=== PATIENT | female | born 1960 | race African-American/Black ===

== ENCOUNTER 2021-02-17 09:48 | Inpatient (IN) | payer OTHER ==
[2021-02-17] VITALS (7 sets, daily range): BP systolic 91–152; BP diastolic 60–91
[~2021-02-17] VITALS: Ht 160 cm; Wt 74.5 kg
--- NOTE | ~2021-02-17 | HC ---
[facility] [place] [address] CONSULTATION Name: MIMI DASH Room #: 206-P ADM IN M.R.#: [id number] Admission: 02/17/21 Attend Phys: Sherie Herrera MD Discharge: Date of : 64 Report #: [id number] THIS REPORT FOR: cc: Dot Boo APRN, Stephanie APRN Khosla,Navneet Leigh MD ~ DOC #: [id number] Navneet Garland MD DATE OF SERVICE: 02/17/2021 HISTORY OF PRESENT ILLNESS: A 60-year-old female patient who was evaluated by me for any neurological etiology for the patient's dizziness. Initially, Emergency Room physician has called me and I talked to him. Subsequently, I talked to Dr. Herrera. They have told him that the patient has multi-level problems in the vessels, so I have asked them to call Radiology to make sure we do a catheter angiogram, if necessary after evaluation before admitting him. They did that, but they misinterpreted as ordering the catheter angiogram. In any event, Dr. Stein called me and he reviewed the CT angiogram and he said the finding is not impressive and is not typical for vasculitis and no catheter angiogram is necessary. The patient's symptoms are that she is dizzy. She said she is dizzy for 2 days, but then she said some symptoms are going on for 1 week. She has not had these symptoms before. She says it comes in episodes and sometimes it is worse, sometimes it is better. She does not have any prominent headache. REVIEW OF SYSTEMS: Somewhat complicated in this patient. There is some question of aneurysm, but no aneurysm has been demonstrated on CT angiogram. CT angiogram has some disease and Dr. Stein, who is our neuroradiologist and interventional radiologist, he does not think it is prominent anything, it is atherosclerotic disease rather than vasculitis. She did have the COVID vaccine. She is not complaining of much visual, ENT, cardiac, respiratory, GI, , musculoskeletal, constitutional dermatological, hematological, psychiatric, throat, allergic symptom associated with present symptomatology. PAST MEDICAL HISTORY: Negative for these kind of symptoms. FAMILY HISTORY: Unremarkable. SOCIAL HISTORY: Positive for smoking. PHYSICAL EXAMINATION: NEUROLOGIC: She is alert, responsive, able to follow simple and complex commands. Her speech looks intact. Cranial nerve examination is unremarkable. Neuromuscular examination is unremarkable. No ataxia was noted. There is no [facility] [address] [place] [place] [address] CONSULTATION Name: MIMI DASH Room #: 206-P [facility] IN .R.#: [id number] Admission: 02/17/21 Attend Phys: Sherie Herrera MD Discharge: Date of : 64 Report #: [id number] meningeal sign. CARDIORESPIRATORY: Unremarkable. VITAL SIGNS: Her blood pressure does go low one time to 91/60. IMPRESSION: We need to do the MRI to decide if this is ENT in pathology or something neurological is going on. So far, the workup is unremarkable. I do not know what to make of her prior history of aneurysm because 2 radiologists have reviewed it and neither one of them think about any aneurysm. She already got aspirin in the Emergency Room. Her cholesterol is high that needs to be addressed. Her blood pressure also may have to be addressed because it has been low but at least one time. I will continue her on aspirin and statin and we will await rest of the blood workup. She will need some other blood workup as an outpatient depending upon the MRI results. It might be mentioned her sed rate is normal. I discussed all of it with this patient and the family. They would like to have discs on the discharge, which will provide them to get a second opinion and preferably from the place where the aneurysm was diagnosed. Thank you very much for this referral. Navneet Garland MD PK/EKT By: [id number] 0032 Navneet Garland MD /nt
[2021-02-17 10:31] LABS: ABSOLUTE NEUTROPHILS 4.4 thou/uL (1.4-8.2); BASOPHILS 0.7 % (0.0-2.0); EOSINOPHILS 0.7 % (0.0-3.0); HEMATOCRIT 36.7 % (37.0-47.0); HEMOGLOBIN 12.4 gm/dL (12.0-15.0); LYMPHOCYTES 27.2 % (24.0-44.0); MCH 32.9 pg (26.0-34.0); MCHC 33.7 g/dL (28.0-37.0); MCV 97.5 fL (80.0-100.0); MONOCYTES 7.2 % (1.0-8.0); PLATELET COUNT 258 thou/uL (150-400); POLYS 64.2 % (36.0-66.0); RBC 3.77 mil/uL (4.20-5.00); RDW 13.5 % (10.5-14.5); WBC 6.9 thou/uL (4.0-11.0)
[2021-02-17 10:34] LABS: ANION GAP 8 mmol/L (7-16); BUN 16 mg/dL (7-18); CALCIUM 9.1 mg/dL (8.5-10.1); CHLORIDE 109 mmol/L (98-107); CO2 28 mmol/L (21-32); GLUCOSE 86 mg/dL (74-106); POTASSIUM 3.2 mmol/L (3.5-5.1); SODIUM 145 mmol/L (136-145)
[2021-02-17 10:44] LABS: ALBUMIN 3.6 g/dL (3.4-5.0); SGOT 17 U/L (15-37); SGPT 17 U/L (14-59); TOTAL BILIRUBIN 0.2 mg/dL (0.2-1.0); TOTAL PROTEIN 7.3 g/dL (6.4-8.2); TROPONIN-I <0.06 ng/mL (<0.06)
[2021-02-17 10:47] LABS: APTT 25.6 Seconds (24.5-32.8); INR 0.94; PROTIME 10.3 Seconds (10.5-12.1)
[2021-02-17] MEDS ORDERED: NORVASC10 MG PO (11:39)
[2021-02-17 14:00] LABS: CHOLESTEROL 202 mg/dL (<200); HDL CHOLESTEROL 76 mg/dL (>40); LDL CHOLESTEROL 113 mg/dL (<100); TC:HDL 2.7 Ratio (Not establshd); TRIGLYCERIDE 68 mg/dL (<150); VLDL 14 mg/dL (<40)
[2021-02-17 14:01] LABS: SERUM ASSESSMENT Clear
--- NOTE | 2021-02-17 14:34 | EKG ---
[address] [place] [address] ELECTROCARDIOGRAM REPORT Name: MIMI DASH Room #: 170-9 ADM IN M.R.#: [id number] Admission: 02/17/21 Attend Phys: Sherie Herrera MD Discharge: Date of : 64 Report #: [id number] [facility] ED Test Date: 2021-02-17 Test Time: 10:27:00 Pat Name: MIMI DASH Department: Room: 170 Gender: F [employer]: RK : 1960 Requested By: Juan Miranda Order Number: [id number] MD: Hamilton Murray Measurements Intervals [place] Rate: 61 P: -13 TX: 184 QRS: -1 QRSD: 101 T: -2 QT: 421 QTc: 424 Interpretive Statements Sinus rhythm Left ventricular hypertrophy Borderline T abnormalities, inferior leads No previous ECG available for comparison Electronically Signed On 02-17-2021 14:33:49 CDT by Hamilton Murray [email or web address] <ELECTRONICALLY SIGNED> By: Hamilton Murray MD, [facility] 02/17/21 1433 1027 1027 Hamilton Murray MD, FACC /EPI
--- NOTE | 2021-02-17 17:24 | NUR ---
ASSUMED CARE OF PT FROM THE ER AT 1630. PT WAS ADMITTED FOR DIZZINESS AND NEAR SYNCOPAL EPISODES. PT IS A/OX4 WITH CLEAR LUNG SOUNDS IN ALL MARK. SKIN INTACT W/D/ATR, NO TENTING. ASSESSMENTS REFLECTED IN THE CHARTING SYSTEM OTHERWISE UNREMARKABLE. JULY LIGHT AND OTHER NEEDS ARE WITHIN REACH. IV IN RIGHT AC SL. MEDS AND TX GIVEN NEEDED AND SCHEDULED.
[2021-02-17] MEDS ORDERED: CHLORTHALIDONE25 MG PO (21:29)
[2021-02-17] MEDS ORDERED: WELLBUTRIN 100100 MG PO (21:30)
--- NOTE | 2021-02-17 22:49 | NUR ---
Assumed pt care at 1900. A/OX4,VSS. Denied pain on assessment but c/o a dizzy spell when she turned her head in bed. Dr Garland contacted at 2022 regarding the MRI and updated on status;indicated he'd follow up with in AM. Pt/son updated and very frustrated about it and requested to speak to a higher power, Martha notified and came and spoke with pt/son,she contacted as well;order to transfer pt to obtained. Pt transferred to via bed with 2 staff assistance,all personal belongings sent with pt. Pt/son appreciated care.
[2021-02-18 03:35] VITALS: BP 104/73
[2021-02-18 04:55] LABS: CALCIUM 8.8 mg/dL (8.5-10.1); CREATININE 0.9 mg/dL (0.6-1.0); POTASSIUM 3.1 mmol/L (3.5-5.1)
--- NOTE | 2021-02-18 06:28 | NUR ---
PATIENT ARRIVED TO ROOM 206 AROUND 2200.A/O X 4.DENIES PAIN.DENIES DIZZINESS.MONITOR SHOWS DWAYNE IN THE 40'S TO 50'S.POTASSIUM LEVEL IS 3.1 THIS MORNING.POTASSIUM PO GIVEN.POC CONTINUED.
[2021-02-18 07:41] VITALS: BP 111/74
--- NOTE | 2021-02-18 08:17 | NUR ---
ASSUMED PT CARE AT 0700, 0815 ASSESSMENT PERFORMED CHARTED. VSS. PT VOICES CONCERNS ABOUT HER WEIGHT LOSS AND MEDICATION DOSAGE. PT STATES SHE WILL DISCUSS WITH HER DR. PT DENIES PAIN AT THIS TIME. WILL CONTINUE TO MONITOR AND FOLLOW POC.
--- NOTE | 2021-02-18 11:44 | NUR ---
PT RESTING WITH FAMILY AT BEDSIDE. PT AWAITING DR SWENSON. VSS. WILL CONTINUE TO MONITOR AND FOLLOW POC.
[2021-02-18] MEDS ORDERED: MECLIZINE HCL25 MG PO (12:57)
[2021-02-18 13:03] VITALS: BP 111/74
== END 2021-02-18 13:35 | disposition home or self-care (01) | DRG 69 ==
LOC: ER 09:48 → EROBS 12:36 → 4W 16:40 → 2N 22:31
PROVIDERS: Emergency Medicine; ADMIT Internal Medicine; ATTEND Internal Medicine
DX: G45.9 Transient cerebral ischemic attack, unspecified (principal); I10 Essential (primary) hypertension; F32.9 Major depressive disorder, single episode, unspecified; F17.210 Nicotine dependence, cigarettes, uncomplicated; Z79.899 Other long term (current) drug therapy
CPT/HCPCS: 10081